=== PATIENT | female | born 1945 | race Caucasian/White ===

== ENCOUNTER → 2016-04-28 | Outpatient (CLI) | payer OTHER, BC ==
[~2016-04-28] MED LIST: ACTONEL150 MG PO; APAP500 PO; APAP650 PO; ARIMIDEX PO; ARTIFICIAL TEAR15 M3 OPHTHALMIC; ASA81BEC PO; CALCIUM 500+D1 EAC2 PO; CENTANY30 GM; CEPHALEXIN500 MG PO; COZAAR 25 MG TA25 M2 PO; COZAAR 50 MG TA50 M2 PO; DELUXE TABLET1 EACH; DOXYCYCLINE MON50 M1 PO; FENOFIBRATE160 MG PO; FISH OIL 1,0001 EAC5 PO; FORTEO PEN750 MCG/3 SC; GABAPENTIN 100100 MG PO; HYDROCHLOROTHIA25 M2 PO; HYDROCODON-ACE1 EAC8 PO; K-DUR 20 MEQ T20 MEQ PO; LEVOTHYROXIN0.075 MG PO; LEVOTHYROXINE 0.1 MG PO; MULTIVITAMINS PO; NASONEX17 GM NASAL; NORCO 5-325 TA1 EACH PO; NORFLEX100 MG PO; PANTOPRAZOLE SO40 M1 PO; PHENERGAN50 MG RECTAL; PROBIOTIC1 EAC1 PO; SYNTHROID100 MCG PO; TOPROL XL100 MG PO; TOPROL XL50 MG; TOPROL XL50 MG PO; TUMS PO; ZYRTEC 10 MG TA10 MG PO
== END ==
LOC: CAT 09:43
DX: R31.9 Hematuria, unspecified (principal); R10.2 Pelvic and perineal pain; R10.9 Unspecified abdominal pain; K57.30 Diverticulosis of large intestine without perforation or abscess without bleeding

== ENCOUNTER → 2016-05-12 | Outpatient (CLI) | payer OTHER, BC | LOC: RAD 14:27 | DX: M47.816 Spondylosis without myelopathy or radiculopathy, lumbar region (principal); M54.5 Low back pain ==

== ENCOUNTER → 2017-02-19 | Outpatient (CLI) | payer OTHER, BC | LOC: CAT 09:54 | DX: K57.92 Diverticulitis of intestine, part unspecified, without perforation or abscess without bleeding (principal) ==

== ENCOUNTER → 2017-04-28 | Outpatient (CLI) | payer OTHER, BC | LOC: RAD 15:17 | DX: M48.02 Spinal stenosis, cervical region (principal); M43.22 Fusion of spine, cervical region; M43.12 Spondylolisthesis, cervical region; M25.78 Osteophyte, vertebrae ==

== ENCOUNTER → 2017-05-05 | Outpatient (CLI) | payer OTHER, BC | LOC: MRI 11:57 | DX: M48.02 Spinal stenosis, cervical region (principal); M47.892 Other spondylosis, cervical region; M50.222 Other cervical disc displacement at C5-C6 level; G95.89 Other specified diseases of spinal cord ==

== ENCOUNTER → 2018-02-25 | Outpatient (CLI) | payer OTHER, BC | LOC: RAD 10:18 | DX: Z12.31 Encounter for screening mammogram for malignant neoplasm of breast (principal); Z13.820 Encounter for screening for osteoporosis; Z78.0 Asymptomatic menopausal state ==

== ENCOUNTER 2019-03-15 11:33 | Emergency (ER) | payer OTHER, BC ==
[~2019-03-15] VITALS: Ht 165.1 cm; Wt 59.0 kg
[2019-03-15 12:33] LABS: ABSOLUTE NEUTROPHILS 5.8 thou/uL (1.4-8.2); BASOPHILS 0.7 % (0.0-2.0); EOSINOPHILS 0.4 % (0.0-3.0); HEMATOCRIT 41.8 % (37.0-47.0); HEMOGLOBIN 13.6 gm/dL (12.0-15.0); LYMPHOCYTES 10.2 % (24.0-44.0); MCH 31.2 pg (26.0-34.0); MCHC 32.5 g/dL (28.0-37.0); MCV 95.9 fL (80.0-100.0); MONOCYTES 11.8 % (1.0-8.0); PLATELET COUNT 202 thou/uL (150-400); POLYS 76.9 % (36.0-66.0); RBC 4.36 mil/uL (4.20-5.00); RDW 13.1 % (10.5-14.5); WBC 7.6 thou/uL (4.0-11.0)
[2019-03-15 12:47] LABS: APTT 23.2 Seconds (24.5-32.8); PROTIME 10.6 Seconds (9.3-11.4)
[2019-03-15 12:48] LABS: ANION GAP 11 mmol/L (7-16); BUN 16 mg/dL (7-18); CALCIUM 11.4 mg/dL (8.5-10.1); CHLORIDE 107 mmol/L (98-107); CO2 27 mmol/L (21-32); CREATININE 0.6 mg/dL (0.6-1.0); GLUCOSE 79 mg/dL (74-106); POTASSIUM 3.3 mmol/L (3.5-5.1); SODIUM 145 mmol/L (136-145)
[2019-03-15 12:48] LABS: URINE BILIRUBIN NEGATIVE (Negative); URINE BLOOD 2+ (Negative); URINE CLARITY CLEAR; URINE COLOR YELLOW; URINE GLUCOSE-RANDOM* NEGATIVE (Negative); URINE KETONES NEGATIVE (Negative); URINE LEUKOCYTES-REFLEX TRACE (Negative); URINE NITRITE-REFLEX NEGATIVE (Negative); URINE PROTEIN (DIPSTICK) NEGATIVE (Negative); URINE SPECIFIC GRAVITY 1.015 (1.005-1.035); URINE UROBILINOGEN 0.2 E.U./dl (0.2-1.0)
[2019-03-15 12:59] LABS: CASTS None Seen /LPF (None Seen); SQUAMOUS 0-3 Few /LPF (0-3)
[2019-03-15 12:59] LABS: ALBUMIN 4.1 g/dL (3.4-5.0); MAGNESIUM 1.8 mg/dL (1.8-2.4); SGOT 19 U/L (15-37); SGPT 11 U/L (30-65); TOTAL BILIRUBIN 0.4 mg/dL (<0.1-1.0); TOTAL PROTEIN 6.9 g/dL (6.4-8.2); TROPONIN-I <0.06 ng/mL (<0.06)
[2019-03-15 13:00] LABS: BACTERIA-REFLEX None Seen /HPF (None Seen); CRYSTALS None Seen /LPF (None Seen); URINE RBC 3-10 Few /HPF (0-2); URINE WBC-REFLEX 0-5 Rare /HPF (0-5)
[2019-03-15] MEDS ORDERED: GABAPENTIN 100100 MG PO (13:17)
[2019-03-15] MEDS ORDERED: SYNTHROID88 MC1 PO (13:17)
[2019-03-15] MEDS ORDERED: CALCIUM 500+D1 EAC2 PO (13:18)
[2019-03-15 14:44] VITALS: BP 150/86
--- NOTE | 2019-03-15 17:10 | EKG ---
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1945 Requested By: Jermaine Espinosa Order Number: [id number] MD: Donta Brasher Measurements Intervals [place] Rate: 95 P: 66 MT: 182 QRS: -18 QRSD: 97 T: 31 QT: 379 QTc: 477 Interpretive Statements Sinus rhythm Borderline prolonged QT interval Baseline wander in lead(s) II,III,aVF Compared to ECG 08/29/2013 10:44:00 No significant changes Electronically Signed On 03-15-2019 17:10:19 MAINTENANCE SCHEDULER by Donta Brasher [email or web address] <ELECTRONICALLY SIGNED> By: Donta Brasher MD, [facility] 03/15/19 171 [id number] 39 Donta Brasher MD, [facility] /EPI
== END 2019-03-15 14:40 | disposition home or self-care (01) ==
LOC: ER 11:33
PROVIDERS: Emergency Medicine
DX: R55 Syncope and collapse (principal); I10 Essential (primary) hypertension; E78.00 Pure hypercholesterolemia, unspecified; K21.9 Gastro-esophageal reflux disease without esophagitis; M19.90 Unspecified osteoarthritis, unspecified site; Z87.442 Personal history of urinary calculi; Z90.49 Acquired absence of other specified parts of digestive tract; Z85.3 Personal history of malignant neoplasm of breast; Z90.12 Acquired absence of left breast and nipple; Z88.1 Allergy status to other antibiotic agents; Z88.6 Allergy status to analgesic agent; Z88.8 Allergy status to other drugs, medicaments and biological substances

== ENCOUNTER → 2019-05-04 | Outpatient (CLI) | payer OTHER, BC ==
[~2019-05-04] MED LIST changes: +SYNTHROID88 MC1 PO
== END | disposition home or self-care (01) ==
LOC: SJCVCIMAG 05-03 07:33
DX: I48.0 Paroxysmal atrial fibrillation (principal); E78.5 Hyperlipidemia, unspecified

== ENCOUNTER → 2019-08-11 | Outpatient (CLI) | payer OTHER, BC | LOC: RAD 11:06 | DX: M25.562 Pain in left knee (principal) ==

== ENCOUNTER → 2019-09-09 | Outpatient (CLI) | payer OTHER, BC | LOC: SJCVCIMAG 10:17 | DX: I10 Essential (primary) hypertension (principal); N28.1 Cyst of kidney, acquired ==

== ENCOUNTER 2020-07-01 08:15 | Emergency (ER) | payer OTHER, BC ==
[~2020-07-01] VITALS: Ht 167.6 cm; Wt 59.0 kg
[2020-07-01] MEDS ORDERED: XARELTO20 MG PO (08:36)
[2020-07-01] MEDS ORDERED: CHLORTHALIDONE25 MG PO (08:37)
[2020-07-01] MEDS ORDERED: SYNTHROID88 MC1 PO (08:38)
[2020-07-01] MEDS ORDERED: TIZANIDINE HCL4 M2 PO (08:38)
[2020-07-01 08:39] LABS: ABSOLUTE NEUTROPHILS 8.4 thou/uL (1.4-8.2); BASOPHILS 0.7 % (0.0-2.0); EOSINOPHILS 1.7 % (0.0-3.0); HEMATOCRIT 37.5 % (37.0-47.0); HEMOGLOBIN 12.7 gm/dL (12.0-15.0); LYMPHOCYTES 8.4 % (24.0-44.0); MCH 31.6 pg (26.0-34.0); MCHC 33.7 g/dL (28.0-37.0); MCV 93.7 fL (80.0-100.0); MONOCYTES 10.4 % (1.0-8.0); PLATELET COUNT 235 thou/uL (150-400); POLYS 78.8 % (36.0-66.0); RBC 4.01 mil/uL (4.20-5.00); RDW 13.5 % (10.5-14.5); WBC 10.7 thou/uL (4.0-11.0)
[2020-07-01] MEDS ORDERED: OLMESARTAN MEDO20 MG PO (08:40)
[2020-07-01] MEDS ORDERED: IBANDRONATE SO150 MG PO (08:41)
[2020-07-01 08:54] LABS: ANION GAP 8 mmol/L (7-16); BUN 19 mg/dL (7-18); CALCIUM 10.5 mg/dL (8.5-10.1); CHLORIDE 102 mmol/L (98-107); CO2 29 mmol/L (21-32); CREATININE 0.9 mg/dL (0.6-1.0); GLUCOSE 104 mg/dL (74-106); POTASSIUM 3.5 mmol/L (3.5-5.1); SODIUM 139 mmol/L (136-145)
[2020-07-01 09:03] LABS: ALBUMIN 3.6 g/dL (3.4-5.0); DIRECT BILIRUBIN 0.1 mg/dL (<0.1-0.2); SGOT 17 U/L (15-37); SGPT 15 U/L (14-59); TOTAL BILIRUBIN 0.5 mg/dL (0.2-1.0); TOTAL PROTEIN 7.7 g/dL (6.4-8.2); TROPONIN-I <0.06 ng/mL (<0.06)
--- NOTE | 2020-07-01 10:19 | EKG ---
[address] [place] [address] ELECTROCARDIOGRAM REPORT Name: JAGRUTI PAULLINE Andrew Room #: 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 : 1945 Requested By: Nakia Mendez Order Number: [id number] MD: Donta Brasher Measurements Intervals [place] Rate: 78 P: 1 [place]: 156 QRS: 3 QRSD: 98 T: 58 QT: 423 QTc: 482 Interpretive Statements Sinus rhythm RSR' in V1 or V2, right VCD Baseline wander in lead(s) V3 Compared to ECG 03/15/2019 11:40:00 RSR' in V1 or V2 now present Electronically Signed On 07-01-2020 10:18:57 CDT by Donta Brasher [email or web address] <ELECTRONICALLY SIGNED> By: Donta Brasher MD, [facility] 07/01/20 [phone] 8 Donta Brasher MD, [facility] /EPI
[2020-07-01 11:03] VITALS: BP 131/78
== END 2020-07-01 11:14 | disposition home or self-care (01) ==
LOC: ER 08:15
PROVIDERS: Emergency Medicine
DX: R07.9 Chest pain, unspecified (principal); I10 Essential (primary) hypertension; K21.9 Gastro-esophageal reflux disease without esophagitis; E78.5 Hyperlipidemia, unspecified; Z90.49 Acquired absence of other specified parts of digestive tract; Z90.89 Acquired absence of other organs; Z79.899 Other long term (current) drug therapy; Z88.1 Allergy status to other antibiotic agents; Z88.5 Allergy status to narcotic agent; Z88.8 Allergy status to other drugs, medicaments and biological substances

== ENCOUNTER → 2020-09-05 | Outpatient (CLI) | payer OTHER, BC ==
[~2020-09-05] MED LIST changes: +CHLORTHALIDONE25 MG PO; +IBANDRONATE SO150 MG PO; +OLMESARTAN MEDO20 MG PO; +TIZANIDINE HCL4 M2 PO; +XARELTO20 MG PO
== END ==
LOC: SJCVCIMAG 07:19
PROVIDERS: ATTEND Internal Medicine Cardiovascular Disease
DX: Z01.810 Encounter for preprocedural cardiovascular examination (principal); I35.1 Nonrheumatic aortic (valve) insufficiency; I10 Essential (primary) hypertension; Z82.49 Family history of ischemic heart disease and other diseases of the circulatory system

== ENCOUNTER → 2021-05-28 | Outpatient (CLI) | payer OTHER, BC | LOC: SJCVC 10:00 | PROVIDERS: ATTEND Internal Medicine Cardiovascular Disease | DX: R94.31 Abnormal electrocardiogram [ECG] [EKG] (principal); I48.91 Unspecified atrial fibrillation; I10 Essential (primary) hypertension; E78.5 Hyperlipidemia, unspecified; D68.59 Other primary thrombophilia; Z72.89 Other problems related to lifestyle; Z79.899 Other long term (current) drug therapy; Z82.49 Family history of ischemic heart disease and other diseases of the circulatory system ==